=== PATIENT | female | born 1945 | race Caucasian/White ===

== ENCOUNTER 2020-03-17 13:49 | Emergency (ER) | payer MEDICARE, SELFPAY ==
--- NOTE | ~2020-03-17 | XR_ITS ---
EXAMINATION: XR ankle LT min 3V DATE: 03/17/2020 14:26 INDICATION: Left ankle injury. TECHNIQUE: 4 views of left ankle were obtained. COMPARISON: None. FINDINGS: Bone alignment is normal. No fracture. Joint spaces are well maintained. There is ankle sof t tissue swelling. IMPRESSION: 1. No fracture. Reviewed, dictated and finalized at location A. IMPRESSION: 1. No fracture.
[2020-03-17 14:00] VITALS: BP 142/53; PULSE 75; RESP 18; TEMP 37.1; O2SAT 98
--- NOTE | 2020-03-17 14:19 | ED.LOWEXIN ---
HPI - Extremity Injury (Lower) General Chief Complaint: Extremity Injury, Lower Stated Complaint: left ankle injury Time Seen by Provider: 03/17/20 14:19 Source: patient and RN notes reviewed Mode of arrival: ambulatory Limitations: no limitations History of Present Illness HPI Narrative: 74 year old female who presents to [facility] care with complaints of pain to the anterior aspect of her left foot with some swelling present since this morning. Patient state that she bent over to get something out of bathroom cabinet and felt a small twist of her ankle but didn't experience any pain at that time. She proceeded to go on her daily 2 mile walk and ever since she returned sh has been experiencing acute anterior left ankle pain radiating to her lateral ankle with noted swelling .Pain increases with any weight bearing or any palpation to the tissue area. Patient has strong pedal and posterior tibial pulses to her right foot, nail beds michael briskly, denies any tingling or numbness to her left foot. MD complaint: ankle injury Onset (ago): day(s) (1) Injury: Left: ankle (anterior) Type of Injury: other (twisting) Place: home Severity: moderate Severity scale (1-10): 6 Relieving factors: rest Exacerbating factors: weight bearing Context: other (twist of ankle) Associated symptoms: swelling and able to partially bear weight Other symptoms: none Related Data Home Medications Medication Instructions Recorded Confirmed No Home Medications 03/17/20 03/17/20 Allergies Allergy/AdvReac Type Severity Reaction Status Date / Time No Known Allergies Allergy Verified 03/17/20 14:23 Review of Systems Review of Systems: Narrative: CONSTITUTIONAL: Denies fever, chills, or sweats. EYES: Denies visual changes, redness, or discharge. ENT: Denies rhinorrhea, congestion, sore throat, or otalgia. CARDIOVASCULAR: Denies chest pain, palpitations, or edema. RESPIRATORY: Denies cough or dyspnea. GASTROINTESTINAL: Denies abdominal pain, nausea, vomiting, or diarrhea. GENITOURINARY: Denies dysuria or hematuria. SKIN: Denies rash or itching. MUSCULOSKELETAL: Denies back pain, positive for anterior left ankle pain and lateral area with swelling. NEUROLOGIC: Denies headache, numbness, or weakness. PSYCHIATRIC: Denies anxiety or depression. All systems reviewed & are unremarkable except as noted in HPI and below PMFSH Surgical History Surgical History (Updated 03/18/20 @ 16:21 by Magaly Fraser NP) History of carpal tunnel surgery of right wrist History of mandibular surgery Social History Social History (Updated 03/18/20 @ 16:21 by Magaly Fraser NP) Smoking status: Never smoker Substance use: never Living arrangements: with family Occupation/Education: retired Gender identity (if verbalized by the patient): Female Comments At time of signature, agree with nursing past medical, surgical, social history. There is no relevant family history pertinent to the presenting complaint Exam Narrative: Exam Narrative: GENERAL: Well-appearing, well-nourished, and in no acute distress. HEAD: Normocephalic, atraumatic. EYES: PERRLA and EOMI. ENT: Nares clear, no rhinorrhea or epistaxis. Mucous membranes moist. NECK: Supple.no lymphadenopathy CHEST: Clear to auscultation. No respiratory distress. HEART: Regular rate and rhythm. No murmur heard. Normal peripheral pulses. ABDOMEN: Soft, nontender, nondistended, normal active bowel sounds. EXTREMITIES:left lower extremity pain across anterior aspect and lateral region of her left ankle.some mild edema noted to lateral and anterior left ankle with increase pain with movement and weight bearing. strong left pedal and posterior tibial pulses, denies any tingling or numbness to her left foot or toes SKIN: Warm, dry, no rash. NEURO: No focal deficits. Alert and oriented x3. Course Vital Signs Vital signs: Vital Signs Temperature 37.1 C 03/17/20 14:00 Pulse Rate 75 03/17/20 14:00 Respir
== END 2020-03-17 14:40 | disposition home or self-care (01) ==
PROVIDERS: Emergency Provider Registered Nurse; PCP Internal Medicine
DX: S93.402A Sprain of unspecified ligament of left ankle, initial encounter (principal); S96.912A Strain of unspecified muscle and tendon at ankle and foot level, left foot, initial encounter; X50.9XXA Other and unspecified overexertion or strenuous movements or postures, initial encounter
CPT/HCPCS: 73610; 99213; G0463

== ENCOUNTER 2022-04-28 15:40 | Emergency (ER) | payer MEDICARE, SELFPAY ==
--- NOTE | ~2022-04-28 | XR_ITS ---
EXAMINATION: XR wrist RT min 3V DATE: 04/28/2022 16:20 INDICATION: Right wrist pain. TECHNIQUE: 4 views of right wrist were obtained. COMPARISON: None. FINDINGS: Bone alignment is normal. No fracture. There is mild osteoarthritis of radiocarpal joint, f irst carpometacarpal joint, and first metacarpophalangeal joint. 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 IMPRESSION: 1. Mild polyarticular osteoarthritis. Reviewed, dictated and finalized at location A.
[2022-04-28 15:46] VITALS: BP 184/68; PULSE 81; RESP 14; TEMP 37.4; O2SAT 100
--- NOTE | 2022-04-28 15:58 | ED.UPPEXIN ---
HPI - Extremity Injury (Upper) General Chief Complaint: Extremity Injury, Upper Stated Complaint: Right wrist swollen Time Seen by Provider: 04/28/22 15:58 Source: patient Mode of arrival: ambulatory Limitations: no limitations History of Present Illness HPI narrative: Ms. Dash is a 76-year-old female patient presenting to clinic today with complaints of right wrist swelling that began this morning. She reports no known injury however she did lift her self up on a counter few days ago. She reports she has pain with range of motion to the right wrist. Wrist has become more swollen and red today Related Data Allergies Allergy/AdvReac Type Severity Reaction Status Date / Time No Known Allergies Allergy Verified 04/28/22 16:08 Review of Systems Review of Systems: Pertinent positives per HPI. Patient denies any fever, chills, rash, headache, visual changes, dizziness, cough, runny nose, sore throat, shortness of breath, chest pain, palpitations, nausea, vomiting, diarrhea, constipation, abdominal pain, or any urinary issues. [facility] Surgical History Surgical History History of carpal tunnel surgery of right wrist History of mandibular surgery Social History Social History Smoking status: Never smoker Substance use: never Gender identity (if verbalized by the patient): Female Comments At the time of my signature, I reviewed and agree with the nursing past medical, surgical, social, and family history. There is no relevant family history pertinent to the patient complaint. Exam Narrative: General: Well-developed, well nourished, in no apparent distress Head: Normocephalic, atraumatic. Cardio: Regular rate and rhythm, s1 and s2 normal, no murmur appreciated. Resp: Clear to auscultation bilaterally, no rhonchi, rales, wheezing or rubs. Musculoskeletal: No deformity, swelling and redness to the right wrist, tender to palpation over the dorsal wrist, pain with flexion, extension, ulnar deviation, and radial deviation, limited range of motion due to pain, muscle strength strong and equal, peripheral pulse strong, no cyanosis, normal gait and station Course Course Emergency Course: Portions of this record may have been created with voice recognition software. Level of Care: Express Care Visit Vital Signs Vital signs: Vital Signs Temperature 37.4 C 04/28/22 15:46 Pulse Rate 81 04/28/22 15:46 Respiratory Rate 14 04/28/22 15:46 Blood Pressure 184/68 H 04/28/22 15:46 Pulse Oximetry 100 04/28/22 15:46 Oxygen Delivery Room Air 04/28/22 15:46 Temperature 37.4 C 04/28/22 15:46 Pulse Rate 81 04/28/22 15:46 Respiratory Rate 14 04/28/22 15:46 Blood Pressure 184/68 H 04/28/22 15:46 Pulse Oximetry 100 04/28/22 15:46 Oxygen Delivery Room Air 04/28/22 15:46 Vital signs reviewed MDM - Extremity Injury (Upper) MDM Narrative Medical decision making narrative: At the time of visit patient is resting comfortably on the exam table. X-ray was performed and shows mild arthritis of the right wrist. I will send impression in prescription for some prednisone to help with the swelling and pain. Supportive measures were discussed with the patient she voiced understanding of discharge instructions and agrees to treatment plan. Differential Diagnosis Differential diagnosis: Likely sprain and strain of wrist, fracture of wrist and other (Arthritis) Imaging Data Radiologist's impression: [facility] [id number] [place] [id number] XRay Report Signed Patient: Tasneem Dash : 1945 MR#: [id number] Age/Sex: 76 / F Acct:[id number] Loc: [facility]? ? ADM Date: 04/28/22Attending Dr: Ordering Physician: Jamison Mills APRN Date of Service: 04/28/22 Procedure(s): XR wrist RT min 3V Accession Num
[2022-04-28 16:35] VITALS: BP 160/70
== END 2022-04-28 16:35 | disposition home or self-care (01) ==
PROVIDERS: Emergency Provider Nurse Practitioner Family; PCP Internal Medicine
DX: M19.031 Primary osteoarthritis, right wrist (principal)
CPT/HCPCS: 73110; 99213; G0463

== ENCOUNTER 2024-11-08 09:49 | Emergency (ER) | payer MEDICARE, SELFPAY ==
--- NOTE | ~2024-11-08 | XR_ITS ---
Left ankle Technique: AP, oblique, and lateral views were obtained. Clinical History: Pain Findings: No acute fracture or dislocation is seen. Osseous alignment is anatomic. Ankle mortise and other visualized joint spaces are preserved. Soft tissues are otherwise unremarkable. Impression: Unremarkable left ankle. Reviewed, dictated and finalized at location . Impression: Unremarkable left ankle.
[2024-11-08 09:53] VITALS: BP 140/53; PULSE 79; RESP 16; TEMP 36.8; O2SAT 99
--- NOTE | 2024-11-08 09:55 | ED_ITS ---
HPI - Extremity Injury (Lower) General Chief Complaint: Extremity Injury, Lower Stated Complaint: left ankle injury Time Seen by Provider: 11/08/24 09:55 Source: patient Mode of arrival: ambulatory Limitations: no limitations History of Present Illness HPI Narrative: Dory is a an 79-year-old female patient presenting to the clinic today with complaints of left ankle injury/pain. She reports she stepped off the mash grinder yesterday and tweaked her ankle. Is complaining of pain to the dorsal anterior aspect of the left ankle. Minimal swelling. Related Data Home Medications ?Medication ?Instructions ?Recorded ?Confirmed ?Last Taken ?Type amlodipine 5 mg tablet mg 11/08/24 Unknown History losartan 50 mg tablet mg 11/08/24 Unknown History Allergies Allergy/AdvReac Type Severity Reaction Status Date / Time No Known Allergies Allergy Verified 11/08/24 10:05 Review of Systems Review of Systems: Pertinent positives per HPI. Patient denies any fever, chills, rash, headache, visual changes, dizziness, cough, runny nose, sore throat, shortness of breath, chest pain, palpitations, nausea, vomiting, diarrhea, constipation, abdominal pain, or any urinary issues. [facility] Surgical History Surgical History History of mandibular surgery History of carpal tunnel surgery of right wrist Social History Social History Smoking status: Never smoker Substance use: never Living arrangements: with family Occupation/Education: retired Gender identity (if verbalized by the patient): Female Comments At the time of my signature, I reviewed and agree with the nursing past medical, surgical, social, and family history. There is no relevant family history pertinent to the patient complaint. Exam Narrative: General: Well-developed, well nourished, in no apparent distress Head: Normocephalic, atraumatic. Cardio: Regular rate and rhythm, s1 and s2 normal, no murmur appreciated. Resp: Clear to auscultation bilaterally, no rhonchi, rales, wheezing or rubs. Musculoskeletal: No deformity, tender to palpation over the anterior dorsal left ankle, pain with dorsal flexion against resistance, grossly normal range of motion, muscle strength strong and equal, peripheral pulse strong, no edema, no cyanosis, normal gait and station Course Course Emergency Course: Portions of this record may have been created with voice recognition software. Level of Care: Express Care Visit Vital Signs Vital signs: Vital Signs Temperature 36.8 C 11/08/24 09:53 Pulse Rate 79 11/08/24 09:53 Respiratory Rate 16 11/08/24 09:53 Blood Pressure 140/53 L 11/08/24 09:53 Pulse Oximetry 99 11/08/24 09:53 Oxygen Delivery Room Air 11/08/24 09:53 Temperature 36.8 C 11/08/24 09:53 Pulse Rate 79 11/08/24 09:53 Respiratory Rate 16 11/08/24 09:53 Blood Pressure 140/53 L 11/08/24 09:53 Pulse Oximetry 99 11/08/24 09:53 Oxygen Delivery Room Air 11/08/24 09:53 Vital signs reviewed MDM - Extremity Injury (Lower) MDM Narrative Medical decision making narrative: At the time of visit patient is resting comfortably on the exam table. Patient appears to be nontoxic. Diagnostics: X-ray of the left ankle is negative for any sign of fracture or malalignment. Plan: I suspect patient has left ankle sprain. Armin wrap was given to the patient. Supportive measures were discussed with the patient and they voiced understanding discharge instructions and agrees to treatment plan. Return precautions reviewed Differential Diagnosis Differential diagnosis: Likely ankle sprain and strain, fracture of femur and ankle fracture Imaging Data Radiologist's impression: ITS Impressions Ankle X-Ray 11/08/24 10:28 Impression: Unremarkable left ankle. Discharge Plan Discharge Clinical Impression: Ankle sprain Qualifiers: Encounter type: initial encounter Involved ligament of ankle: unspecified ligament Laterality: left Qualified Code(s): S93.402A - Sprain of unspecified ligament of left ankle, initial encounter Patient Disposition: Home Condition: Stable Instructions: Antibiotic Form, Ankle Sprain (ED) Additional Instructions: X-rays negative for any acute fracture or malalignment. Rest, ice, elevate, and wear armin wrap as directed Tylenol/motrin for pain as discussed. Gradually bear weight No running or sports until healed. Follow up with your PCP if symptoms persist more than 1 week. Patient Language: Malian Prescriptions: No Action losartan 50 mg tablet amlodipine 5 mg tablet Follow-up/Referrals: Charly,Eloy Haskins MD [Primary Care Provider] - Time of Disposition: 10:33 Quality NIHSS Nursing Documentation ED NIHSS nursing documentation: reviewed/agree
--- OUTSIDE RECORDS SUMMARY | 2024-11-08 10:02 | XMS_ITS | Clinical Summary ---
Author Organization [facility] Address [address] [place] [address] Care Team Providers Care Facilities Operations Technician Name Role Phone Eloy Parks MD Primary Care Provider [phone] Social History Tobacco Use Types Packs/Day Years Used Date Smoking Tobacco: Never Assessed Comments Unknown Sex and Gender Information Value Date Recorded Sex Assigned at Not on file Legal Sex Female 6:33 PM CDT Gender Identity Not on file Sexual Orientation Not on file Last Filed Vital Signs Vital Sign Reading Time Taken Comments Blood Pressure 106/70 07/04/2012 4:37 PM CATALOG SPECIALIST Pulse 66 07/04/2012 4:37 PM CATALOG SPECIALIST Temperature - - Respiratory Rate - - Oxygen Saturation - - Inhaled Oxygen Concentration - - Weight 39.9 kg (88 lb) 07/04/2012 4:37 PM CATALOG SPECIALIST Height 149.9 cm (4' 11 ) 07/04/2012 4:37 PM CATALOG SPECIALIST Body Mass Index 17.77 07/04/2012 4:37 PM CATALOG SPECIALIST Plan of Treatment Health Maintenance Due Date Last Done Comments DTaP, Tdap and Td Vaccines ( 1 - Tdap) 1962 Pneumococcal Vaccine: 50+ Ye ars (1 of 1 - PCV) 1993 Zoster Vaccines (1 of 2) 1993 Dexa Scan (General) 2008 RSV Immunization or 60+ Years (1 - 1-dose 75+ series) 2018 COVID-19 Vaccine (2023-2 5 season) 2024 Meningococcal B Vaccine Aged Out No l onger eligible based on patient's age to complete this topic Meningococcal Vaccine Aged Out No chio kentrell eligible based on patient's age to complete this topic RSV Immunizations Under 20 Months Aged Out No longer eligible based on patient's age to complete this topic Care Teams Facilities Operations Technician Relationship Specialty Start Date End Date Eloy Parks MD PCP - General 06/25/12
--- OUTSIDE RECORDS SUMMARY | 2024-11-08 10:02 | XMS_ITS | Encounter Summary ---
Author Organization [facility] Address [address] [place] [address] Phone Care Team Providers Care Public Policy Mediator Name Role Phone Eloy Parks MD Primary Care Provider [phone] Reason for Visit * Reason Comments Medication Refill Encounter Details Date Type Department Care Team (Late st Contact Info) Description 09/30/2023 Refill [facility] [address]2 [place] [address] Eloy Parks MD [address] [address] Medication Refill Social History Tobacco Use Types Packs/Day Years Used Date Smoking Tobacco: Never Smokeless Tobacco: Never Alcohol Use Standard Drinks/Week Comments No 0 (1 standard drink = 0.6 oz pur e alcohol) PHQ-2 Answer Date Recorded Total Score - Questions 1-9 0 08/2023 Education Answer Date Recorded What is the highest level of school you have completed or the highest degree you have received? 12th grade 01/12/2023 Sexually Active Control Partners Comments Never Comments No Sex and Gender Information Value Date Recorded Sex Assigned at Not on file Legal Sex Female 9:42 PM CDT Gender Identity Not on file Sexual Orientation Not on file documented as of this encounter Miscellaneous Notes * Telephone Encounter - Maritza Lind RN - 09/30/2023 11:30 AM CDT Medication(s) refilled and signed per [facility] Chronic Medication Refill Standing Order for Pediatricand Adult Patients. Requested Prescriptions Pending Prescriptions Disp Refills losartan (COZAAR) 50 MG Tablet [Pharmacy Med Name: LOSARTAN 50MG TABLETS] 90 Tablet 0 Sig: TAKE 1 TABLET BY MOUTH DAILY ARB Protocol Passed - 09/30/2023 5:48 AM Passed - Serum potassium on record in past 12 months POTASSIUM Date Value Ref Range Status 07/11/2023 3.8 3.5 - 5.1 mmol/L Final Passed - BP on record in the past year Clinician-entered: BP Readings from Last 3 Encounters: 07/18/23 135/72 01/12/23 124/58 07/14/22 134/60 Patient-entered: No data recorded Passed - Visit with relevant provider in past year or upcoming 90 days Recent Visits Date Type Provider Dept 07/18/23 Office Visit Eloy Parks MD [facility] [place] 01/12/23 Office Visit [facility] Showing recent visits within past 365 days and meeting all other requirements Future Appointments Date Type Provider Dept 10/12/23 Appointment Milka Barakat, SOUVENIR ASSEMBLER, LIVE IN HOUSEKEEPER [facility] Showing future appointments within next 90 days and meeting all other requirements Passed - GFR on record in past 12 months GFR, EST. NONAFRICAN Date Value Ref Range Status 07/11/2023 >60 >=60 Final documented in this encounter Plan of Treatment Upcoming Encounters Date Type Department Care Team (Late st Contact Info) Description 01/07/2025 9:00 AM CDT Lab [facility] #[address] [address] [place] [facility] Lab/Ancillary 01/14/2025 2:15 PM CDT Office Visit [facility] - Family Medicine - [place] [address] [place] [address] Eloy Parks MD #[address] [address] documented as of this encounter Visit Diagnoses Not on filedocumented in this encounter Additional Health Concerns Assessment Noted Time PHQ-9 Depression Total Score: 0 07/18/19 24 1:27 PM ANALYSIS CONSULTANT documented as of this encounter Care Teams Public Policy Mediator Relationship Specialty Start Date End Date Eloy Parks MD [address] [address] PCP - General Family Medicine 05/24/22 documented as of this encounter
--- OUTSIDE RECORDS SUMMARY | 2024-11-08 10:02 | XMS_ITS | Referral Summary ---
Author Organization [facility] [address] Address [address] [place] [address] Phone Care Team Providers Care Inspector Toys Name Role Phone Eloy Parks MD Primary Care Provider [phone] Allergies Active Allergy Reactions Criticality Noted Date Comments Propoxyphene Mental status changes Low Darvocet Medications amLODIPine (NORVASC) 5 mg tablet Take 1 tablet (5 mg total) by mouth daily Active losartan (COZAAR) 50 mg tablet Take 1 tablet (50 mg total) by mouth daily Active Active Problems Problem Noted Date Diagnosed Date Hypertension 03/16/2023 Raynaud's disease 12/25/2016 Temporal arteritis 06/22/2012 Overview (10/21/2016): Temporal arteritis Resolved Problems Problem Noted Date Diagnosed Date Resolved Date 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 12/25/2016 Overview (10/20/2016): Migraine aura without headache Immunizations Immunization Administration Dates Next Due DTaP 06/16/2007 Pneumococcal Polysaccharide PPV23 07/21/2010 Social History Tobacco Use Types Packs/Day Years Used Date Smoking Tobacco: Never Smokeless Tobacco: Never Tobacco Cessation:Counseling Given: Yes Alcohol Use Standard Drinks/Week Comments No 0 (1 standard drink = 0.6 oz pur e alcohol) Comments No Sex and Gender Information Value Date Recorded Sex Assigned at Not on file Legal Sex Female 4:51 PM SAP SENIOR DEVELOPER Gender Identity Not on file Sexual Orientation Not on file Occupation Industry Job Start Date Job End Date retired Not on file Not on file Not on file Last Filed Vital Signs Vital Sign Reading Time Taken Comments Blood Pressure 142/70 03/16/2023 2:12 PM CDT Pulse 78 12/20/2016 8:46 AM CDT Temperature - - Respiratory Rate 16 12/20/2016 8:46 AM CDT Oxygen Saturation 98% 04/02/2013 1:05 PM CDT Inhaled Oxygen Concentration - - Weight 40.4 kg (89 lb) 03/16/2023 2:12 PM CDT Height 147.3 cm (4' 10 ) 03/16/2023 2:12 PM CDT Body Mass Index 18.6 03/16/2023 2:12 PM CDT Plan of Treatment Not on [place] [address] [facility] MEDICARE [facility] MEDICARE [facility] Care Teams Inspector Toys Relationship Specialty Start Date End Date Eloy Parks MD [address] [place] [id number] PCP - General 10/14/16
--- OUTSIDE RECORDS SUMMARY | 2024-11-08 10:02 | XMS_ITS | Encounter Summary ---
Author Organization [facility] Address [address] [place] [address] Phone Care Team Providers Care Speech Assistant Name Role Phone Eloy Parks MD Primary Care Provider [phone] Reason for Visit * Reason Comments Medication Refill Encounter Details Date Type Department Care Team (Late st Contact Info) Description 11/29/2023 Refill [facility] [address]2 [place] [address] Eloy Parks MD #[address] [address] Medication Refill Social History Tobacco Use Types [...] encounter Miscellaneous Notes * Telephone Encounter - Tiffany Rivera RN - 11/29/2023 11:20 AM CDT Medication(s) refilled and signed per [facility] Chronic Medication Refill Standing Order for Pediatricand Adult Patients. Requested Prescriptions Pending Prescriptions Disp Refills amLODIPine (NORVASC) 5 MG Tablet [Pharmacy Med Name: AMLODIPINE BESYLATE 5MG TABLETS] 90 Tablet 1 Sig: TAKE 1 TABLET BY MOUTH DAILY Calcium-Channel Blockers Protocol Passed - 11/29/2023 5:50 AM Passed - BP on record in the past year Clinician-entered: BP Readings from Last 3 Encounters: 10/12/23 144/70 07/18/23 135/72 01/12/23 124/58 Patient-entered: No data recorded Passed - Visit with relevant provider in past 12 months or upcoming 90 days Recent Visits Date Type Provider Dept 10/12/23 Office Visit Milka Barakat APRN[facility] 07/18/23 [facility] 01/12/23 Office Visit Eloy Parks MD [facility] [place] Showing recent visits within past 365 days and meeting all other requirements Future Appointments Date Type Provider Dept 01/16/24 Appointment Eloy Parks MD [facility] Showing future appointments within next 90 days and meeting all other requirements documented in this encounter Plan of Treatment Upcoming Encounters Date Type Department Care Team (Late st Contact Info) Description 01/07/2025 9:00 AM CDT Lab [facility] #[address] [address] [place] Lab/Ancillary 01/14/2025 2:15 PM CDT Office Visit [facility] [place] [facility] [address] Eloy Parks MD #[address] [address] documented as of this encounter Visit Diagnoses Not on filedocumented in this encounter Additional Health Concerns Assessment Noted Time PHQ-9 Depression Total Score: 0 07/18/19 1:27 PM FRAME ALIGNER documented as of this encounter Care Teams Speech Assistant Relationship Specialty Start Date End Date Eloy Parks MD [address]2 [place] [address] PCP - General Family Medicine 05/24/22 documented as of this encounter
--- OUTSIDE RECORDS SUMMARY | 2024-11-08 10:02 | XMS_ITS | Clinical Summary ---
Author Organization [facility] [address] Address [address] [place] [address] Phone Care Team Providers Care Cryptologic Linguist Name Role Phone Eloy Parks MD Primary Care Provider [phone] Allergies Active Allergy Reactions Criticality Noted Date [...] Due DTaP 06/16/2007 Pneumococcal Polysaccharide PPV23 07/21/2010 Surgical History Surgery Date Site/Laterality Comments MANDIBLE SURGERY 07/17/1972 - 07/16/1973 CARPAL TUNNEL RELEASE 07/17/1979 - 07/16/1980 BREAST CYST EXCISION 07/17/1982 - 07/16/1983 Right Medical History Medical History Date Comments Raynaud's syndrome Temporal arteritis (HCC) 2012 treated with prednisone Osteoporosis Hypertension Family History Medical History Relation Name Comments Heart attack Brother Multiple sclerosis Daughter Bladder Cancer Father Lung cancer Father Diabetes Father's Brother Heart attack Maternal Grandfather Heart attack Mother Heart attack Mother's Brother 2 MU's Heart attack Mother's Sister 1 Colon cancer Mother's Sister 2 Pancreatic cancer Sister 1 COD Breast cancer Sister 2 Breast cancer Sister 3 Heart attack Sister 4 Relation Name Status Comments Brother Daughter Father Father's Brother Maternal Grandfather Mother Mother's Brother Mother's Sister 1 Mother's Sister 2 Sister 1 (Age 70) Sister 2 Sister 3 Sister 4 Social History Tobacco Use Types Packs/Day Years Used Date Smoking Tobacco: Never Smokeless Tobacco: Never Tobacco Cessation:Counseling Given: Yes Alcohol Use Standard Drinks/Week Comments No 0 (1 standard drink = 0.6 oz pur e alcohol) Comments No Sex and Gender Information Value Date Recorded Sex Assigned at Not on file Legal Sex 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 Gender Identity Not on file Sexual Orientation Not on file Occupation Industry Job Start Date Job End Date retired Not on file Not on file Not on file Obstetrics History Para Term AB IAB SAB Ectopic Multiple Livin g Live Births 2 2 2 0 0 0 0 0 0 2 2 Date Outcome GA Total Labor Labor/2nd/3rd Weight Sex Type Anes PTL Dunia A1 A5 Name Clin Term Term Last Filed Vital Signs Vital Sign Reading [...] 03/16/2023 2:12 PM CDT Plan of Treatment Health Maintenance Due Date Last Done Comments Depression Screening 1945 Fall Risk Assessment 1945 Hepatitis B Screening 1961 Zoster Vaccine (1 of 2) 1993 Well Visit 65+ 2008 Pneumococcal vaccine 65+ (2 of 2 - PCV) 07/21/2011 07/21/2010 DTaP/Tdap/Td Vaccine (2 - Tdap) 06/16/2017 7 Covid-19 Vaccine (4 - 4-2 5 season) 2024 06/04/2021, 09/23/2020, 08/26/2020 Influenza Vaccine (#1) 2024 , 04/12/2022, 04/28/2020, Additional history exists Osteoporosis Screening-Bone Density Scan 06/22/2024 06/22/2022, 06/22/2022 Insurance MEDICARE [facility] MEDICARE [facility] MEDICARE [facility] Care Teams Cryptologic Linguist Relationship Specialty Start Date End Date Eloy Parks MD [address] [address] [facility] - General 10/14/16
--- OUTSIDE RECORDS SUMMARY | 2024-11-08 10:02 | XMS_ITS | Clinical Summary ---
Author Organization [facility] Address [address] [place] [phone] Phone Care Team Providers Care Finishing Area Supervisor Name Role Phone Eloy Parks MD Primary Care Provider [phone] Allergies No known active allergies Medications guaiFENesin (Mucinex) 600 MG TABLET SR 12 HRIndications:S inus congestion Take 1 Tablet by mouth 2 times daily. 4 Active Additional Information Patient not taking.Reported on 07/18/2024 amLODIPine (NORVASC) 5 MG Tablet TAKE 1 TABLET BY MOUTH DAILY 90 Tablet 1 4 Active losartan (COZAAR) 50 MG Tablet TAKE 1 TABLET BY MOUTH DAILY 90 Tablet 1 4 Active Active Problems Problem Noted Date Diagnosed Date Bronchitis 09/10/2015 HTN (hypertension) Raynaud's disease Immunizations Immunization Administration Dates Next Due COVID-19, MRNA, LNP-S, BIVAL ENT , PFIZER, 30 MCG/0.3 ML (12+ Y/O) 05/03/2022 Covid-19, Mrna, Lnp-s, PF, 1 00 mcg/0.5 mL Dose (Moderna) 09/23/2020,08/26/2020 Covid-19, Mrna, Lnp-s, PF, 5 0 mcg/0.25 mL dose (Moderna) 06/04/2021 DTAP VACCINE 06/16/2007 Influenza Vaccine 04/12/2022 Influenza Vaccine less than 3 yrs 04/25/2023 Influenza, High-dose, Quadrivalent 04/29/2022, Influenza, Quadrivalent, Adjuvanted 04/29/2021 Influenza, Trivalent, Adjuvanted, PF 05/13/2019, 05/04/2018 Influenza, high-dose, trivalent, PF 04/20/2024,1 ,08/16/2017 Pneumococcal Vaccine Adult - 23 Valent 1 Pneumococcal conjugate PCV20 , polysaccharide [id number] conjugate, adjuvant, PF 01/12/2023 Sars-cov-2 (Covid-19) Vaccine, Unspecified 04/18 Family History Medical History Relation Name Comments Cancer Father Heart Attack Mother Relation Name Status Comments Father Mother Social History Tobacco Use Types Packs/Day Years Used Date Smoking Tobacco: Never Smokeless Tobacco: Never Tobacco Cessation:Counseling Given: Not Answered Alcohol Use Standard Drinks/Week Comments No 0 (1 standard drink = 0.6 oz pur e alcohol) [facility] Utilities Answer Date Recorded In the past 12 months has e [employer], gas, oil, or water [employer] threatened to shut off services in your home? No 01/16/2024 Social Connection and Isolat ion Panel [NHANES] Answer Date Recorded In a typical week, how many times do you talk on the phone with family, friends, or neighbors? More than three times a week 01/16/2024 How often do you get togethe r with friends or relatives? More than three times a week 01/16/2024 Attends Taoism Services Not on file 01/15 Active Member of Clubs or Organizations Not on f ile 01/16/2024 Attends Club or Organization Meetings Not on riccardo e 01/16/2024 Marital Status Not on file 01/16/2024 AUDIT-C Answer Date Recorded Q1: How often do you have a drink containing alc ohol? Monthly or less 01/16/2024 Average Number of Drinks Not on file Frequency of Binge Drinking Not on file 08/2023 Overall Financial Resource Strain (CARDIA) Answe r Date Recorded How hard is it for you to pa y for the very basics like food, housing, medical care, and heating? Not hard at all 01/16/2024 PHQ-2 Answer Date Recorded Total Score - Questions 1-9 0 08/2024 [facility] - Occupational Stress Questionnaire Answer Date Recorded Do you feel stress - tense, restless, nervous, or anxious, or unable to sleep at night because your mind is troubled all the time - these days? Not at all 01/16/2024 Exercise Vital Sign Answer Date Recorde d On average, how many days pe r week do you engage in moderate to strenuous exercise (like a brisk walk)? 5 days 01/16/2024 On average, how many minutes do you engage in exercise at this level? 40 min 01/16/2024 Hunger Vital Sign Answer Date Recorded Within the past 12 months, y ou worried that your food would run out before you got the money to buy more. Never true 01/16/20 24 Within the past 12 months, t he food you bought just didn't last and you didn't have money to get more. Never true 01/16/2024 PRAPARE - Transportation Answer Date Re corded In the past 12 months, has l ack of transportation kept you from medical appointments or from getting medications? No 01/16/2024 Lack of Transportation (Non-Medical) Not on file 01/16/2024 Housing Stability Vital Sign Answer Jose Carlos e Recorded In the last 12 months, was t here a time when you were not able to pay the mortgage or rent on time? No 01/16/2024 Number of Times Moved in the Last Year Not on fi le 01/16/2024 Homeless in the Last Year Not on file 2023 Education Answer Date Recorded What is the [...] Sign Reading Time Taken Comments Blood Pressure 141/65 07/18/2024 2:23 PM GRAIN ORIGINATION SPECIALIST Pulse 76 07/18/2024 2:15 PM GRAIN ORIGINATION SPECIALIST Temperature 36.2 C (97.1 F) 07/18/2024 2:15 PM GRAIN ORIGINATION SPECIALIST Respiratory Rate 16 07/18/2024 2:15 PM GRAIN ORIGINATION SPECIALIST Oxygen Saturation 98% 07/18/2024 2:15 PM GRAIN ORIGINATION SPECIALIST Inhaled Oxygen Concentration - - Weight 41.3 kg (91 lb 1.6 oz) 07/18/2024 2:15 PM GRAIN ORIGINATION SPECIALIST Height 149.9 cm (4' 11 ) 07/18/2024 2:15 PM GRAIN ORIGINATION SPECIALIST Body Mass Index 18.4 07/18/2024 2:15 PM GRAIN ORIGINATION SPECIALIST Plan of Treatment Upcoming Encounters Date Type Department Care Team (Late st Contact Info) Description 01/07/2025 9:00 AM CDT Lab [facility] #2 [facility] [address] [place] [address] [facility] Lab/Ancillary 01/14/2025 2:15 PM CDT Office Visit [facility] - [facility] - [place] [address] [place] [address] Eloy Parks MD #2 [facility] [address] [place] [address] Health Maintenance Due Date Last Done Comments Hepatitis C Virus (HCV) Screening 1945 Zoster Immunization (1 of 2) 1993 DEXA Bone Density 06/22/2024 06/22/2022 SARS-COV-2 Immunization (6 - Mixed Product risk season) 2024 04/20/2024, 04/18/2023, 04/06/2023, Additional history exists DTaP/Tdap/Td Immunization Discontinued 06/16/2007 Pneumococcal Immunization (50+ years) Completed 01/12/2023, 07/21/2010 Pneumococcal Immunization Combined Discontinued 01/12/2023, 07/21/2010 Respiratory Syncytial Virus (RSV) Immunization (Adult) Completed 08/13/2023 Influenza Immunization Completed , 04/25/2023, 04/06/2023, Additional history exists Hepatitis B Immunization Aged Out No longer eligible based on patient's age to complete this topic Meningococcal Immunization (ACWY) Aged Out No longer eligible based on patient's age to complete this topic Rotavirus Immunization Aged Out No lo nger eligible based on patient's age to complete this topic Procedures Procedure Name Priority Date/Time Associated Diagnosis Comments TAE BONE DENSITOMETRY AXIAL SKELETON Routine 06/22/2022 2:27 PM GRAIN ORIGINATION SPECIALIST Menopause from Last 3 Months or Most Recently Relevant to Health Maintenance Results * [facility] BONE DENSITOMETRY AXIAL SKELETON (06/22/2022 2:27 PM GRAIN ORIGINATION SPECIALIST) Anatomical Region Laterality Modality BODY N/A Computed Radiogr aphy 06/22/2022 3:37 PM GRAIN ORIGINATION SPECIALIST Impressions 06/22/2022 3:40 PM GRAIN ORIGINATION SPECIALIST IMPRESSION: Osteoporosis REFERENCE: Bone mineral density: Normal (T-score above or = -1.0) Low bone mass (T-score between -1.0 and -2.5) replaces the previously used term osteopenia Osteoporosis (T-score = or below -2.5) Medical evaluation for secondary causes of low bone mineral density may be appropriate. FRAX is a World Health Organization validated fracture risk assessment tool that calculates a person's 10 year probability of a major osteoporosis related fracture and hip fracture. According to the National Osteoporosis Foundation guidelines, postmenopausal women and men age 50 or older with low bone mass and a 10 year probability of a major osteoporosis related fracture = or greater than 20% or a 10 year probability of a hip fracture = or greater than 3% should be considered for treatment. For further information, including treatment recommendations, please refer to the 2013 ISCD Official Positions (http://www.iscd.org) and the NOF's Clinician's Guide to Prevention and Treatment of Osteoporosis (http://www.nof.org/professionals/clinical-guidelines) Narrative 06/22/2022 3:40 PM GRAIN ORIGINATION SPECIALIST EXAM DESCRIPTION: [facility] BONE DENSITOMETRY AXIAL SKELETON REASON FOR STUDY: 77 y/o year old F with given history of screening. Food Manager/Model: Fincon (S/N [id number]) CLINICAL INFORMATION: Current height: 4 foot 11 inches Maximum height: 4 foot 11 inches Weight: 91 pounds Risk factors: None COMPARISON: 08/16/2010 FINDINGS: AP LUMBAR SPINE L1-L4: Total BMD is 0.958 g/cm2 T-score is -1.9 Most recent prior BMD was 0.866 g/cm2 There has been a 10.6% change in BMD which is statistically significant. LEFT HIP: Current Total BMD is 0.688 g/cm2 T-score is -2.5 Most recent prior Total BMD was 0.763 g/cm2 There has been a -9.8% change in BMD which is statistically significant. Current femoral neck BMD is 0.637 g/cm2 T-score is -2.9 FRAX: 10 year risk for a major osteoporotic fracture is 19.3 %, 10 year risk for a hip fracture is 8.0 % THIS IS AN ELECTRONICALLY VERIFIED FINAL REPORT 06/22/2022 3:37 PM - Electronically signed by Kyle Chung M.D. AG: AG Report ID: [id number] Reading Location: [id number] Procedure Note Kyle Chung MD - 06/22/2022 EXAM DESCRIPTION: TAE BONE DENSITOMETRY AXIAL SKELETON REASON FOR STUDY: 77 y/o year old F with given history of screening. Food Manager/Model: Fincon (S/N [id number]) CLINICAL INFORMATION: Current height: 4 foot 11 inches Maximum height: 4 foot 11 inches Weight: 91 pounds Risk factors: None COMPARISON: 08/16/2010 FINDINGS: AP LUMBAR SPINE L1-L4: Total BMD is 0.958 g/cm2 T-score is -1.9 Most recent prior BMD was 0.866 g/cm2 There has been a 10.6% change in BMD which is statistically significant. LEFT HIP: Current Total BMD is 0.688 g/cm2 T-score is -2.5 Most recent prior Total BMD was 0.763 g/cm2 There has been a -9.8% change in BMD which is statistically significant. Current femoral neck BMD is 0.637 g/cm2 T-score is -2.9 FRAX: 10 year risk for a major osteoporotic fracture is 19.3 %, 10 year risk for a hip fracture is 8.0 % THIS IS AN ELECTRONICALLY VERIFIED FINAL REPORT 06/22/2022 3:37 PM - Electronically signed by Kyle Chung M.D. AG: AG Report ID: [id number] Reading Location: [id number] IMPRESSION: Osteoporosis REFERENCE: Bone mineral density: Normal (T-score above or = -1.0) Low bone mass (T-score between -1.0 and -2.5) replaces the previously used term osteopenia Osteoporosis (T-score = or below -2.5) Medical evaluation for secondary causes of low bone mineral density may be appropriate. FRAX is a World Health Organization validated fracture risk assessment tool that calculates a person's 10 year probability of a major osteoporosis related fracture and hip fracture. According to the National Osteoporosis Foundation guidelines, postmenopausal women and men age 50 or older with low bone mass and a 10 year probability of a major osteoporosis related fracture = or greater than 20% or a 10 year probability of a hip fracture = or greater than 3% should be considered for treatment. For further information, including treatment recommendations, please refer to the 2013 ISCD Official Positions (http://www.iscd.org) and the NOF's Clinician's Guide to Prevention and Treatment of Osteoporosis (http://www.nof.org/professionals/clinical-guidelines) Eloy Parks MD IMG DEXA ORDERABLES Final Res ult from Last 3 Months or Most Recently Relevant to Health Maintenance Insurance MEDIC[facility] [place] [id number] [facility] Care Teams Finishing Area Supervisor Relationship Specialty Start Date End Date Eloy Parks MD #[address] [address] PCP - General Family Medicine 05/24/22
--- OUTSIDE RECORDS SUMMARY | 2024-11-08 10:02 | XMS_ITS | Encounter Summary ---
Author Organization [facility] Address [address] [place] [address] Phone Care Team Providers Care Gravity Meter Operator Name Role Phone Eloy Parks MD Primary Care Provider [phone] Reason for Visit * Reason Comments Medication Refill Encounter Details Date Type Department Care Team (Late st Contact Info) Description 12/29/2023 Refill [facility] [address]2 [place] [address] Eloy Parks MD #[address] [address] Medication Refill Social History Tobacco Use Types [...] Telephone Encounter - Tiffany Rivera RN - 12/29/2023 10:46 AM CDT Medication(s) refilled and signed per [facility] Chronic Medication Refill Standing Order for Pediatricand Adult Patients. Requested Prescriptions Pending Prescriptions Disp Refills losartan (COZAAR) 50 MG Tablet [Pharmacy Med Name: LOSARTAN 50MG TABLETS] 90 Tablet 1 Sig: TAKE 1 TABLET BY MOUTH DAILY ARB Protocol Passed - 12/29/2023 5:51 AM Passed - Serum potassium on record [...] Dept 10/12/23 Office Visit Milka Barakat APRN, [facility] 07/18/23 Office Visit Eloy Parks MD [facility] 01/12/23 Office Visit [facility] Showing recent visits within past 365 days and meeting all other requirements Future Appointments Date Type Provider Dept 01/16/24 Appointment Eloy Parks MD [facility] Showing future appointments within next 90 days and meeting all other requirements Passed - GFR on record in past 12 months GFR, EST. NONAFRICAN Date Value Ref Range Status 07/11/2023 >60 >=60 Final documented in this encounter Plan of Treatment Upcoming Encounters Date Type Department Care Team (Late st Contact Info) Description 01/07/2025 9:00 AM CDT Lab [facility] #[address] [address] [facility] Lab/Ancillary 01/14/2025 2:15 PM CDT Office Visit [facility] - Family Medicine - [place] #2 [facility] [place] [address] Eloy Parks MD #[address] [address] documented as of this encounter Visit Diagnoses Not on filedocumented in this encounter Additional Health Concerns Assessment Noted Time PHQ-9 Depression Total Score: 0 07/18/19 24 1:27 PM BLUE LINE TRIMMER documented as of this encounter Care Teams Gravity Meter Operator Relationship Specialty Start Date End Date Eloy Parks MD #[address] [place] [id number] PCP - General Family Medicine 05/24/22 documented as of this encounter
--- NOTE | 2024-11-08 10:15 | PC.NURSE ---
PT DECLINED WHEELCHAIR TO RADIOLOGY AND ICE FOR COMFORT
== END 2024-11-08 10:42 | disposition home or self-care (01) ==
PROVIDERS: Emergency Provider Nurse Practitioner Family; PCP Internal Medicine
DX: S93.402A Sprain of unspecified ligament of left ankle, initial encounter (principal); Z79.899 Other long term (current) drug therapy; X50.0XXA Overexertion from strenuous movement or load, initial encounter
CPT/HCPCS: 73610; 99213; G0463